=== PATIENT | female | born 1955 | race Caucasian/White ===

== ENCOUNTER 2016-11-05 19:25 | Emergency (ER) | payer OTHER ==
[2016-11-05] MEDS ORDERED: oxyCODONE 5 MG TABLET PO STA (20:44)
[2016-11-05] MEDS ORDERED: ALBUTEROL NEB 2.5 MG/3 ML INH STA ×2 (20:44→21:38)
[2016-11-05] MEDS ORDERED: oxyCODONE 5 MG TABLET ONE (20:49)
[2016-11-05] MEDS ORDERED: ALBUTEROL NEB 2.5 MG/3 ML INH ONE ×2 (21:08→22:01)
[2016-11-05] MEDS ORDERED: methylPREDNISolone SUCCINATE 125 MG/2 ML VIAL IVP STA (21:38)
[2016-11-05] MEDS ORDERED: POTASSIUM CHLORIDE 20 MEQ TABLET PO STA (21:39)
[2016-11-05] MEDS ORDERED: OSELTAMIVIR 75 MG CAPSULE PO STA (21:42)
[2016-11-05] MEDS ORDERED: POTASSIUM CHLORIDE 20 MEQ TABLET PO ONE (22:28)
[2016-11-05] MEDS ORDERED: OSELTAMIVIR 75 MG CAPSULE PO ONE (22:28)
[2016-11-05] MEDS ORDERED: methylPREDNISolone SUCCINATE 125 MG/2 ML VIAL IVP ONE (22:28)
[2016-11-05] MEDS ORDERED: SODIUM CHLORIDE FLUSH 0.9% 10 ML SYRINGE IVP PRN (23:39)
[2016-11-05] MEDS ORDERED: SODIUM CHLORIDE 0.9% 1,000 ML IV SCH (23:45)
[2016-11-06] MEDS ORDERED: ALBUTEROL 8 GM INHALER INH STA (00:05)
[2016-11-06] MEDS ORDERED: levoFLOXacin 250 MG TABLET PO STA (00:05)
[2016-11-06] MEDS ORDERED: levoFLOXacin 250 MG TABLET PO ONE (00:12)
[2016-11-06] MEDS ORDERED: ALBUTEROL 8 GM INHALER INH ONE (00:13)
[2016-11-06] MEDS ORDERED: SODIUM CHLORIDE FLUSH 0.9% 10 ML SYRINGE IVP SCH (06:00)
[2016-11-06] MEDS ORDERED: POLYETHYLENE GLYCOL 3350 17 GM PACKET PO SCH (09:00)
== END 2016-11-06 00:57 | disposition home or self-care (01) ==
DX: J11.1 Influenza due to unidentified influenza virus with other respiratory manifestations (principal); E87.6 Hypokalemia; R40.4 Transient alteration of awareness; N30.00 Acute cystitis without hematuria; J44.9 Chronic obstructive pulmonary disease, unspecified; E11.9 Type 2 diabetes mellitus without complications; K70.30 Alcoholic cirrhosis of liver without ascites; F17.200 Nicotine dependence, unspecified, uncomplicated
CPT/HCPCS: 36415; 70450; 71020; 80053; 80306; 80307; 81001; 82140; 82803; 83690; 84484; 85025; 85610; 85730; 87077; 87086; 87181; 87275; 87276; 94640; 94664; 96374; 99284; A9270; J7613